=== PATIENT | female | born 1935 | race Caucasian/White ===

== ENCOUNTER → 2016-08-12 | Outpatient (CLI) | payer OTHER, MEDICAID | LOC: FIMAGING 15:26 | PROVIDERS: ATTEND Nurse Practitioner | DX: M54.5 Low back pain (principal) ==

== ENCOUNTER → 2016-10-07 | Outpatient (CLI) | payer OTHER, MEDICAID | LOC: CIMAGING 16:54 | PROVIDERS: ATTEND Internal Medicine Nephrology | DX: N17.9 Acute kidney failure, unspecified (principal); N28.89 Other specified disorders of kidney and ureter | CPT/HCPCS: 76770-PO ==

== ENCOUNTER → 2017-01-28 | Outpatient (CLI) | payer OTHER, MEDICAID | LOC: FIMAGING 18:57 | PROVIDERS: ATTEND Nurse Practitioner | DX: R07.81 Pleurodynia (principal); R07.1 Chest pain on breathing; C90.00 Multiple myeloma not having achieved remission ==

== ENCOUNTER → 2017-02-18 | Outpatient (CLI) | payer OTHER, MEDICAID ==
[~2017-02-18] MED LIST: IOPAMIDOL (ISOVUE-300) 100 ML BTL ONE
== END ==
LOC: FIMAGING 17:13
PROVIDERS: ATTEND Internal Medicine Hematology & Oncology
DX: C90.00 Multiple myeloma not having achieved remission (principal); M51.36 Other intervertebral disc degeneration, lumbar region; M51.37 Other intervertebral disc degeneration, lumbosacral region
CPT/HCPCS: 72192; Q9967

== ENCOUNTER 2017-03-06 13:58 | Emergency (ER) | payer OTHER, MEDICAID ==
[2017-03-06 14:28] VITALS: RESP 18
--- NOTE | 2017-03-06 14:56 | EDPHY ---
H & P Stated Complaint: non traumatic L hip pain x 2 days, myeloma pt Time Seen by Provider: 03/06/17 14:55 HPI/ROS: CHIEF COMPLAINT: Atraumatic left hip pain HISTORY OF PRESENT ILLNESS: The patient presents to the ED with atraumatic left hip pain. The patient has a history of multiple myeloma. She reports yesterday she felt a pop sensation in her left hip. Since that time she has had painful ambulation and difficulty weight-bearing. The patient did have some left hip pain several weeks ago which was evaluated with a pelvic CT which demonstrated no evidence of an obvious fracture however lytic lesions were noted in the pelvis. The patient denies a direct fall or trauma. She does have a history of atrial fibrillation and is anticoagulated. She denies any acute numbness or weakness. The patient's daughter did give her a dose of dexamethasone earlier today. She also slightly increased her narcotic medications. REVIEW OF SYSTEMS: A comprehensive 10 point review of systems is otherwise negative aside from elements mentioned in the history of present illness . 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 - Social History Smoking Status: Never smoked - Physical Exam Exam: General Appearance: Elderly female, no acute distress Eyes: Pupils equal and round no pallor or injection ENT, Mouth: Mucous membranes moist Respiratory: There are no retractions, lungs are clear to auscultation Cardiovascular: Regular rate and rhythm Gastrointestinal: Abdomen is soft and nontender, no masses, bowel sounds normal Neurological: A&O, normal motor function, normal sensory exam, normal cranial nerves Skin: Warm and dry, no rashes Musculoskeletal: Neck is supple nontender Extremities: Tenderness to palpation over left greater trochanter Constitutional: Initial Vital Signs Temperature (C) 37.3 C 03/06/17 14:25 Respiratory Rate 18 03/06/17 14:25 Blood Pressure 94/72 L 03/06/17 14:25 O2 Sat (%) 92 03/06/17 14:25 O2 Delivery Mode Room Air Allergies/Adverse Reactions: Penicillins Allergy (Mild, Verified 05/24/16 10:25) Rash Home Medications: Medication Instructions Recorded LORazepam [Ativan (*)] 0.25 - 1 mg PO Q4 PRN 10/03/14 Latanoprost 0.005% [Xalatan 0.005% 1 drops EACHEYE HS 10/03/14 (*)] Lenalidomide [Revlimid] 25 mg PO AD 10/03/14 Polyethylene Glycol 3350 [Miralax 17 gm PO DAILY PRN 10/03/14 17 gm (*)] Ranitidine HCl [Zantac] 150 mg PO BID 10/03/14 Zoledronic Acid 4 mg IV Q28D 10/03/14 morphINE SR [Ms Contin/Oramorph 15 15 mg PO BID 10/03/14 mg (*)] Apixaban [Eliquis] 5 mg PO BID #60 tablet 10/04/14 C/E/Zn/Cu/OM3/DHA/EPA/LUT/ZEAX 1 each PO DAILY 05/24/16 [Preservision Areds 2 Softgel] Cholecalciferol Vit D3 [Vitamin D3 1,000 units PO DAILY 05/24/16 (*)] Multivitamins [Multivitamin (*)] 1 each PO DAILY 05/24/16 Simvastatin [Zocor] 20 mg PO HS 05/24/16 Metoprolol Succinate Xr [Toprol Xl 37.5 mg PO DAILY 05/25/16 25 mg (*)] Prochlorperazine Maleate 10 mg PO TID PRN #20 tab 05/25/16 [Compazine 10mg (*)] morphINE [Roxanol 10 mg/0.5 ml 5 mg PO Q2HRS PRN #15 ml 05/25/16 oral soln (*)] predniSONE 40 mg PO DAILY #10 tab 05/25/16 Methocarbamol [Robaxin 500 mg (*)] 1,000 mg PO DAILY PRN #20 tab 05/27/16 Medical Decision Making - Diagnostics Imaging Results: Imaging Impressions Pelvis CT 03/06/17 15:05 Impression: 1. Stable lucent osseous lesions compatible with history of multiple myeloma. 2. Development of pathologic fracture extending from the lucent lesion left anterior lateral iliac wing inferiorly to the anterior inferior iliac spine region without displacement. Findings discussed with Jadon Barreto M.D. at 16:34 hour, 03/06/2017. ED Course/Re-evaluation: The patient presents to the ED for evaluation of pelvic and hip pain. She has a history of multiple myeloma and has known lytic lesions in the pelvis. I was able to range the patient's knee. She did seem to have a referred pain into her left gluteal area. Given her history, CT scan of the pelvis was obtained without contrast which does demonstrate a nondisplaced pathologic fracture through the iliac wing. There is no evidence of a fracture in the hip her acetabulum. The patient has been feeling better since receiving some oral narcotic medications. She prefers to go home and touch base with her regular oncologist regarding her pain management. The patient understands to return to the ED for uncontrolled pain or other concerns. Differential Diagnosis: Differential diagnosis considered includes pelvic fracture, hip fracture, hip dislocation Departure - Departure Disposition: Home, Routine, Self-Care Clinical Impression: Multiple myeloma, Pathologic pelvic fracture Condition: Fair Instructions: Osteolysis (ED) Additional Instructions: 1. Please follow-up with your oncologist as scheduled to review your current oral pain medications. 2. Return to the emergency department for any unmanaged pain or worsening symptoms. Referrals: Chente Harrell MD [Primary Care Provider] - As per Instructions
[2017-03-06 17:35] VITALS: BP 134/67; PULSE 69; TEMP 98.6; O2SAT 91
== END 2017-03-06 17:30 | disposition home or self-care (01) ==
LOC: SUPCPDRO 13:58
DX: M84.454A Pathological fracture, pelvis, initial encounter for fracture (principal); C90.00 Multiple myeloma not having achieved remission; Z79.01 Long term (current) use of anticoagulants

== ENCOUNTER → 2017-03-17 | Outpatient (CLI) | payer OTHER, MEDICAID | LOC: FLAB 15:20 | PROVIDERS: ATTEND Nurse Practitioner | DX: M79.652 Pain in left thigh (principal); C90.00 Multiple myeloma not having achieved remission ==

== ENCOUNTER → 2017-03-30 | Outpatient (CLI) | payer OTHER, MEDICAID | LOC: FIMAGING 10:16 | PROVIDERS: ATTEND Internal Medicine Hematology & Oncology | DX: D47.2 Monoclonal gammopathy (principal) | CPT/HCPCS: 78306; A9503 ==

== ENCOUNTER → 2017-07-11 | Outpatient (CLI) | payer OTHER, MEDICAID | LOC: CIMAGING 15:58 | PROVIDERS: ATTEND Family Medicine | DX: M79.605 Pain in left leg (principal); C90.00 Multiple myeloma not having achieved remission | CPT/HCPCS: 73502-PO; 73551-PO; 73562-PO; 73590-PO; 73600-PO ==